=== PATIENT | female | born 1955 | race Caucasian/White ===

== ENCOUNTER → 2018-10-27 | Outpatient (CLI) | payer MEDICARE, OTHER ==
--- NOTE | 2018-10-27 15:01 | REP ---
RIGHT LOWER EXTREMITY DUPLEX DOPPLER ARTERIAL ULTRASOUND: Real-time ultrasound evaluation and duplex Doppler interrogation of the right lower extremity arterial system is performed. The patient has a history of a right bypass graft from mid superficial femoral artery to the tibioperoneal truck. At the proximal anastomosis, peak systolic velocity is 58 cm/s, mid aspect 29 cm/s, and distal anastomosis 32 cm/s with biphasic waveforms throughout. ALEX on the right is 0.92. Distal right superficial femoral artery is occluded. Biphasic waveforms are seen proximal to that with monophasic waveforms distal to that. There is reversal of flow in the popliteal artery. There is otherwise no significant stenosis of the right lower extremity arterial system with mild scattered plaquing and narrowing. Right Peak Systolic Velocity Common femoral artery 142 cm/s Profunda 34 cm/s Proximal SFA 101 cm/s Mid SFA 65 cm/s Distal SFA occluded Popliteal reversed Proximal MAKSIM 37 cm/s Tibial peroneal trunk 29 cm/s Proximal DEICER REPAIRER ELECTRIC 46 cm/s Distal DEICER REPAIRER ELECTRIC 47 cm/s Distal MAKSIM 20 cm/s IMPRESSION: Patent bypass graft from mid superficial femoral artery to tibioperoneal trunk. This bypasses an occluded distal superficial femoral artery. Otherwise, no significant arterial stenosis of the right lower extremity. Reversal of flow in the right popliteal artery. Electronically Signed by Chris Lockhart MD 10/27/2018 04:36 P
== END ==
LOC: M RAD 12:27
PROVIDERS: ATTEND Nurse Practitioner
DX: Z95.828 Presence of other vascular implants and grafts (principal); I74.3 Embolism and thrombosis of arteries of the lower extremities

== ENCOUNTER 2018-12-14 09:42 | Inpatient (IN) | payer MEDICARE, OTHER ==
[~2018-12-14] VITALS: Ht 170.2 cm; Wt 60.5 kg
[2018-12-14] MEDS ORDERED: LISI10TA4 PO (09:57)
[2018-12-14] MEDS ORDERED: ALBU8.5H INH (09:57)
[2018-12-14] MEDS ORDERED: METO1TAB32 PO (09:57)
[2018-12-14] MEDS ORDERED: BREO1INH3 INH (09:57)
[2018-12-14] MEDS ORDERED: ATOR80TA59 PO (09:57)
[2018-12-14] MEDS ORDERED: ASPI-255 PO (10:02)
[2018-12-14] MEDS ORDERED: AMOX500C PO (10:02)
[2018-12-14] MEDS ORDERED: PLAV1TAB2 PO (10:02)
[2018-12-14] MEDS ORDERED: PANT40TA3 PO (10:02)
[2018-12-14] MEDS ORDERED: DRON40TA PO (10:02)
[2018-12-14] MEDS ORDERED: CLAR500T PO (10:02)
[2018-12-14 11:10] LABS: BASO # 0.1 10^3/uL (0.0-0.2); BASO % 0.9 % (0.0-1.0); EOS # 0.1 10^3/uL (0.0-0.50); EOS % 0.7 % (0.0-3.0); HEMATOCRIT 39.7 % (36.0-47.0); HEMOGLOBIN 12.7 g/dl (12.0-15.5); LYMPH # 1.6 10^3/uL (1.5-4.5); LYMPH % 14.1 % (24.0-44.0); MEAN CORPUSCULAR HEMOGLOBIN 31.7 pg (27.0-33.0); MONO # 0.9 10^3/uL (0.0-0.8); MONO % 8.3 % (0.0-5.0); NEUTROPHILS # 8.5 10^3/uL (1.8-7.7); NEUTROPHILS % 75.6 % (36.0-66.0); PLATELET COUNT, AUTOMATED 359 10^3/uL (150-450); RED BLOOD COUNT 4.01 10^6/uL (4.00-5.40); WHITE BLOOD COUNT 11.3 10^3/uL (4.0-10.0)
[2018-12-14] MEDS ORDERED: HEPARIN SOD (PORCINE) 5000 UNITS/ML VIAL IV ONE ×2 (11:15→13:30)
[2018-12-14 11:24] LABS: PROTHROMBIN TIME 12.9 SECONDS (11.8-14.0)
[2018-12-14] MEDS ORDERED: DOCU100C16 PO (11:30)
[2018-12-14] MEDS ORDERED: DULC5TAB PO (11:30)
[2018-12-14] MEDS ORDERED: VITA200020 PO (11:30)
[2018-12-14 11:34] LABS: ALBUMIN 3.9 GM/DL (3.2-5.2); BILIRUBIN,DIRECT 0.1 MG/DL (0.0-0.2); BILIRUBIN,TOTAL 0.4 MG/DL (0.2-1.0); CALCIUM LEVEL 9.9 MG/DL (8.8-10.2); CREATININE FOR GFR 1.2 MG/DL (0.55-1.30); POTASSIUM SERUM 5.4 MEQ/L (3.5-5.1); TOTAL PROTEIN 7.7 GM/DL (6.4-8.2)
--- NOTE | 2018-12-14 11:46 | CR.PDOC ---
General Date of Consultation: Dec 14, [address] Cho HPI: 63 year old F with a past medical history significant for PAD who reported to the emergency department reporting right lower extremity pain. She states she noticed a white discoloration in the toes of her right foot this morning as well as right foot pain. She states she follows with Dr. Castillo in [place], she was scheduled to see him this morning. At baseline she has pain in the right calf with ambulation. If she stops to rest it typically resolves. This morning pain in her right lower extremity has been persistent. She noticed discoloration of her toes as well. Vascular surgery was called for consultation regarding right lower extremity i schemia. Denies any fevers, chills, weakness, fatigue, Headache, Chest Pain, Shortness of breath, cough, palpitations, abdominal pain, N/V/D or changes in bowel or bladder habits. PMHx: PAD/prior vascular procedures lower extremity as per Dr. Castillo. History of DVT. COPD GERD Recent GI bleed discharged from [facility] 12/[facility]/18 status post EGD. Restarted on aspirin 81 mg daily and Plavix. Coumadin was discontinued. Dyslipidemia Hypertension VHD PSHX: EGD Colonoscopy Hysterectomy Breast biopsy, benign Left ulnar nerve transposition Mitral valve repair Cardiac ablation SOCHX: Tobacco use: 5-7 cigarettes per day ETOH denies FAMHX: History of hypertension, CAD, PVD. ROS: As noted in HPI, otherwise 11pt ROS of systems reviewed and unremarkable. PE: GEN: 63 yo F, appears stated age. No acute distress. Alert and oriented x 3. HEENT: Normocephalic, atraumatic. Moist mucous membranes. LUNGS: Clear to auscultation bilaterally. ABD: Round, soft, non-tender, non-distended. EXT: No lower extremity edema appreciated. White discoloration is noted of the first through fourth toes of the right foot. Mild tenderness with palpation. Cool to touch. DP/PT pulses are nonpalpable and unable to obtain with Doppler. Popliteal is obtained with Doppler. Femoral pulses palpable. Poor capillary refill. SKIN: No rashes. NEURO: Alert and oriented x 3. No focal deficits appreciated. A&P: 1. History of PAD. Right lower extremity ischemia. The patient is reviewed and examined as per Dr. Cho. History of recent GI bleed, status post EGD. Hemoglobin is noted to be 12.7. Right lower extremity arterial ultrasound is pending at this time. Patient was apparently recently taken off Coumadin and is currently on aspirin 81 mg and Plavix. Await results of arterial ultrasound for further recommendations. Recommend Heparin gtt. Will add PPI IV BID and carafate AC/HS for GI prophylaxis. Possibly consider angiogram 12/15/18. 2. H/O DVT. Heparin gtt currently. Vital Signs/I&O Vital Signs Date Time Temp Pulse Resp B/P (MAP) Pulse Ox O2 Delivery O2 Flow Rate FiO2 12/14/18 11:05 12/14/18 09:44 97.6 65 16 100 Room Air Laboratory Data Labs 24H Laboratory Tests 2 12/14/18 10:29: Immature Granulocyte % (Auto) 0.4, White Blood Count 11.3H, Red Blood Count 4.01, Hemoglobin 12.7, Hematocrit 39.7, Mean Corpuscular Volume 99.0H, Mean Corpuscular Hemoglobin 31.7, Mean Corpuscular Hemoglobin Concent 32.0, Red Cell Distribution Width 14.3, Platelet Count 359, Neutrophils (%) (Auto) 75.6H, Lymphocytes (%) (Auto) 14.1L, Monocytes (%) (Auto) 8.3H, Eosinophils (%) (Auto) 0.7, Basophils (%) (Auto) 0.9, Neutrophils # (Auto) 8.5H, Lymphocytes # (Auto) 1.6, Monocytes # (Auto) 0.9H, Eosinophils # (Auto) 0.1, Basophils # (Auto) 0.1, Nucleated Red Blood Cells % (auto) 0.0, Prothrombin Time 12.9, Prothromb Time International Ratio 1.00, Anion Gap 4L, Glomerular Filtration Rate 48.0, Calcium Level 9.9, Aspartate Amino Transf (AST/SGOT) 13, Alanine Aminotransferase (ALT/SGPT) 21, Alkaline Phosphatase 86, Total Bilirubin 0.4, Direct Bilirubin 0.1, Total Protein 7.7, Albumin 3.9, Albumin/Globulin Ratio 1.03 CBC/BMP Laboratory Tests 12/14/18 10:29 Red Blood Count 4.01, Mean Corpuscular Volume 99.0 H, Mean Corpuscular Hemoglobin 31.7, Mean Corpuscular Hemoglobin Concent 32.0, Red Cell Distribution Width 14.3, Neutrophils (%) (Auto) 75.6 H, Lymphocytes (%) (Auto) 14.1 L, Monocytes (%) (Auto) 8.3 H, Eosinophils (%) (Auto) 0.7, Basophils (%) (Auto) 0.9, Neutrophils # (Auto) 8.5 H, Lymphocytes # (Auto) 1.6, Monocytes # (Auto) 0.9 H, Eosinophils # (Auto) 0.1, Basophils # (Auto) 0.1 Allergies Coded Allergies: No Known Allergies (Unverified , 12/14/18) Home Medications Scheduled Amoxicillin (Amoxicillin) 500 Mg Capsule, 1,000 MG PO BID, (Reported) FILLED 12/03 FOR 14 DAYS Aspirin (Aspirin EC) 325 Mg Tablet.dr, 325 MG PO DAILY, (Reported) Atorvastatin Calcium (Atorvastatin Calcium) 80 Mg Tablet, 80 MG PO QHS, (Reported) Cholecalciferol (Vitamin D3) (Vitamin D3) 2,000 Unit Capsule, 2,000 UNIT PO QHS, (Reported) Clarithromycin (Clarithromycin) 500 Mg Tablet, 500 MG PO BID, (Reported) FILLED 12/03 FOR 14 DAYS Clopidogrel Bisulfate (Plavix) 75 Mg Tablet, 75 MG PO DAILY, (Reported) Dronedarone (Multaq) 400 Mg Tablet, 400 MG PO BID, (Reported) Fluticasone/Vilanterol (Breo Ellipta 200-25 Mcg INH) 1 Each Blst.w.dev, 1 PUFF INH DAILY, (Reported) Lisinopril (Lisinopril) 10 Mg Tablet, 10 MG PO DAILY, (Reported) Metoprolol Succinate (Metoprolol Succinate) 25 Mg Tab.er.24h, 25 MG PO DAILY, (Reported) Pantoprazole Sodium (Pantoprazole Sodium) 40 Mg Tablet.dr, 40 MG PO BID, (Reported) Scheduled PRN Albuterol Sulfate (Albuterol Sulfate Hfa) 8.5 Gm Hfa.aer.ad, 2 PUFFS INH QID PRN for SHORTNESS OF BREATH, (Reported) Bisacodyl (Dulcolax) 5 Mg Tablet.dr, 5 MG PO DAILY PRN for CONSTIPATION, (Reported) Docusate Sodium (Docusate Sodium) 100 Mg Capsule, 100 MG PO DAILY PRN for CONSTIPATION, (Reported) Attending Note Attending Note VASCULAR SURGICAL ATTENDING NOTE: Dr. Lisbeth Cho M.D. The patient was seen on 12/14/18 at 12:11. ASSESSMENT: Patient is a 63-year-old female with acute ischemia of the the right lower extremity who has previously undergone a right femoral to popliteal artery bypass graft with cadaveric saphenous vein. The surgery was done in [place]. The patient subsequently had thrombosis of her bypass graft and underwent thrombolysis with angiography in [facility]. The patient had sudden worsening of her chronic ischemia in her right lower extremity venous morning and presented to the emergency room. Patient was seen during ultrasound of her right lower extremity which demonstrated occlusion of her bypass graft. Patient also has a history of a recent gastrointestinal hemorrhage. Patient initially had right toes and decreased motor and sensation in the emergency room but on evaluation at this time the toes are pink with 2-3 second capillary refill and the patient's motor and sensory function are intact in the right foot. PLAN: The patient will undergo systemic anticoagulation with heparin for her ischemic right lower extremity. The patient has a recent gastrointestinal hemorrhage and will be placed on Protonix 40 mg every 12 hours as well as Carafate every 6 hours. If the patient tolerates heparinization with no acute gastrointestinal bleeding then the patient will undergo angiography with possible initiation of thrombolysis of her thrombosed right femoral to popliteal artery bypass graft. If the patient is unable to undergo thrombolysis she will undergo angiography and require recurrent bypass grafting. Patient will be admitted and monitored on heparin and undergo angiography on 12/15/2018 with possible thrombolysis as long as she remains stable with regards to her previous gastrointestinal bleeding. Yasmine Sunshine was the attending vascular surgeon for this patient encounter. The patient was seen, examined, interviewed and evaluated independently by Dr. Nicole Cho M.D. Dr. Nicole Cho M.D. was fully available during the consultation evaluation. All aspects of the patient interview, examination, medical decision making process, and medical care plan development were reviewed and approved by Dr. Nicole Cho M.D. Dr. Nicole Cho M.D. is aware and concurs with the plan as stated in the body of this note and will attest to such by his/her cosignature. Celia Drummond Dec 14, 2018 11:46 Olegario Cho MD Dec 14, 2018 23:31
[2018-12-14] MEDS ORDERED: DOCUSATE SODIUM 100 MG CAP PO PRN (13:30)
[2018-12-14] MEDS ORDERED: BISACODYL 5 MG TAB PO PRN (13:30)
--- NOTE | 2018-12-14 14:19 | HPE ---
DATE OF ADMISSION: 12/14/2018 PRIMARY CARE PROVIDER: Dr. Martines CHIEF COMPLAINT: Ischemic right leg. HISTORY: Delphine Strauss is a 63-year-old patient of Dr. Martines who was admitted to the hospitalist service. She has a cool, tingling right lower extremity. She has a history of peripheral arterial disease, prior vascular procedures by vascular group in [place], Dr. Feldman. She has a history of chronic obstructive pulmonary disease (COPD), gastroesophageal reflux disease (GERD), hyperlipidemia, hypertension, valvular heart disease with mitral valve ring repair, gastrointestinal bleed, recently discharged on 12/03/2018 status post esophagogastroduodenoscopy (EGD). She was on aspirin and Plavix, which was restarted due to her vascular disease. She has a history of deep vein thrombosis (DVT). She used to be on warfarin for this, but this was discontinued after her recent bleed. SURGICAL HISTORY: 1. EGD and colonoscopy 11/2018. 2. Hysterectomy. 3. Breast biopsy. 4. Left ulnar nerve transposition. 5. Mitral valve ring repair. 6. Cardiac ablation for supraventricular tachycardia (SVT). SOCIAL HISTORY: Smokes five to seven cigarettes a day. Denies alcohol use. FAMILY HISTORY: Positive for coronary artery disease. REVIEW OF SYSTEMS: No epistaxis, rectal bleeding, hematemesis, chest pain, shortness of breath, palpitations. PHYSICAL EXAMINATION: VITAL SIGNS: As per flow sheet. GENERAL APPEARANCE: Alert, conversant, no distress. Well developed, well nourished. LUNGS: Clear. HEART: Regular rate and rhythm. 1/6 systolic ejection murmur. ABDOMEN: Soft, nontender. No masses. EXTREMITIES: Right lower extremity is cool with no palpable pulses. Tender to palpate from calf distally. LABORATORIES: White count 11.3, hemoglobin 12.7, platelets 359. Sodium 139, potassium 5.4, BUN 29, chloride 1.2, glucose 102, INR 1.0. IMPRESSION: 1. Ischemic right lower extremity. Arterial ultrasound was done, which reportedly shows occluded right popliteal artery. Dr. Cho has been consulted. He asked the hospitalist service to admit the patient. He plans intervention later today. Advises holding aspirin and Plavix and starting heparin drip. Aggressive gastrointestinal prophylaxis with IV Protonix and sucralfate in the face of recent gastrointestinal bleed. 2. Hyperlipidemia. Continue atorvastatin 80 mg daily. 3. Hypertensive heart disease. Continue Lisinopril and metoprolol. 4. Recent gastrointestinal bleed. Repeat CBC has been ordered. Aggressive gastrointestinal prophylaxis with IV Protonix and oral Carafate has been ordered.
[2018-12-14 14:38] LABS: PARTIAL THROMBOPLASTIN TIME 29.2 SECONDS (25.0-38.4)
--- NOTE | 2018-12-14 15:00 | REP ---
RIGHT LOWER EXTREMITY DUPLEX ARTERIAL ULTRASOUND: Real-time ultrasound evaluation and duplex Doppler interrogation of right lower extremity arterial system is performed. ALEX is 0.6. There is occlusion of a known right femoral to tibial peroneal trunk bypass graft. There is also occlusion of the distal right superficial femoral artery and distal anterior tibial artery. Biphasic waveforms are seen in the common femoral artery and proximal superficial femoral artery with monophasic waveforms in the popliteal artery and arteries of the calf. Scattered plaquing is seen. PEAK SYSTOLIC VELOCITY RIGHT Common femoral artery 111.3 cm/s Profunda 118.1 Proximal SFA 56.6 Superficial femoral artery mid 21.1 Superficial femoral artery distal Occluded Popliteal 99.2 Proximal anterior tibial artery 46.8 Tibial peroneal trunk 21.3 Proximal posterior tibial artery 19.7 Distal posterior tibial artery 14.8 Distal anterior tibial artery Occluded IMPRESSION: There is occlusion of the right femoral tibioperoneal trunk bypass graft, as well as occlusion of the distal right SFA and MAKSIM. Electronically Signed by Chris Lockhart MD 12/15/2018 09:45 A
[2018-12-14] MEDS: SUCRALFATE 1 GM TAB PO SCH ×3 (15:05→23:50)
[2018-12-14] MEDS: HEPARIN DRIP 25,000 UNITS in APPROPRIATE DILUENT 1 EA IV SCH (15:15)
[2018-12-14 16:35] VITALS: BP 122/57
[2018-12-14] MEDS ORDERED: ACETAMINOPHEN TAB 650MG DOSE (2X325MG) PO PRN (19:45)
[2018-12-14 20:00] VITALS: BP 115/58
--- NOTE | 2018-12-14 20:30 | ECGEPIP ---
[facility] - ED Test Date: 2018-12-14 Pat Name: ANA ALDRIDGE Department: Room: - Gender: Female Otc Clerk: joey : 1955 Requested By: BK NIÑO PA-C Order Number: [id number] Reading MD: Rylee Naqvi Measurements Intervals [place] Rate: 73 P: 60 WI: 168 QRS: 56 QRSD: 90 T: 46 QT: 386 QTc: 428 Interpretive Statements SINUS RHYTHM WITH OCCASIONAL VENTRICULAR PREMATURE COMPLEXES WITH FREQUENT SUPRAVENTRICULAR PREMATURE COMPLEXES ABNORMAL RHYTHM ECG delayed R progression NSTTW abnormalities NO PRIOR Electronically Signed on 12-14-2018 20:29:44 EDT by Rylee Naqvi
[2018-12-14] MEDS: PANTOPRAZOLE 40MG INJ (PROTONIX) (C9113) IV SCH (20:32)
[2018-12-14] MEDS: ATORVASTATIN 20 MG TAB PO SCH (20:32)
[2018-12-14] MEDS: DRONEDARONE 400 MG TAB (MULTAQ) PO SCH (20:32)
[2018-12-14] MEDS ORDERED: PANTOPRAZOLE 40MG TAB (PROTONIX) PO SCH (21:00)
[2018-12-14 23:59] VITALS: BP 100/59
[2018-12-15] VITALS (7 sets, daily range): BP systolic 110–136; BP diastolic 56–77
[2018-12-15 04:53] LABS: HEMATOCRIT 34.5 % (36.0-47.0); MEAN CORPUSCULAR HEMOGLOBIN 31.1 pg (27.0-33.0); MEAN CORPUSCULAR HGB CONC 31.9 g/dl (32.0-36.5); MEAN CORPUSCULAR VOLUME 97.5 fl (80.0-96.0); PLATELET COUNT, AUTOMATED 296 10^3/uL (150-450); RED BLOOD COUNT 3.54 10^6/uL (4.00-5.40); WHITE BLOOD COUNT 9.2 10^3/uL (4.0-10.0)
[2018-12-15] MEDS: SUCRALFATE 1 GM TAB PO SCH ×4 (05:14→23:25)
[2018-12-15 05:35] LABS: BLOOD UREA NITROGEN 19 MG/DL (7-18); CALCIUM LEVEL 8.5 MG/DL (8.8-10.2); CARBON DIOXIDE LEVEL 25 MEQ/L (21-32); CHLORIDE LEVEL 109 MEQ/L (98-107); CREATININE FOR GFR 0.98 MG/DL (0.55-1.30); GLOMERULAR FILTRATION RATE > 60.0 (>45); GLUCOSE, FASTING 86 MG/DL (70-100); POTASSIUM SERUM 3.9 MEQ/L (3.5-5.1); SODIUM LEVEL 143 MEQ/L (136-145)
[2018-12-15] MEDS: DRONEDARONE 400 MG TAB (MULTAQ) PO SCH ×2 (08:55→21:20)
[2018-12-15] MEDS: PANTOPRAZOLE 40MG INJ (PROTONIX) (C9113) IV SCH ×2 (08:56→21:19)
[2018-12-15] MEDS: LISINOPRIL 10 MG TAB PO SCH (09:00)
[2018-12-15] MEDS ORDERED: ASPIRIN ENTERIC 325 MG TAB PO SCH (09:00)
[2018-12-15] MEDS ORDERED: CLOPIDOGREL 75 MG TAB PO SCH (09:00)
[2018-12-15] MEDS: METOPROLOL SUCC *XL* 25MG TAB (TopROL *XL*) PO SCH (09:00)
--- NOTE | 2018-12-15 10:44 | IPNPDOC ---
Date Seen The patient was seen on 12/15/18. Progress Note Vascular surgery. Dr. Cho HPI: 63 year old F with a past medical history significant for PAD who reported to the emergency department reporting right lower extremity pain. She states she noticed a white discoloration in the toes of her right foot this morning as well as right foot pain. She states she follows with Dr. Castillo in [place], she was scheduled to see him this morning. At baseline she has pain in the right calf with ambulation. If she stops to rest it typically resolves. This morning pain in her right lower extremity has been persistent. She noticed discoloration of her toes as well. Vascular surgery was called for consultation regarding right lower extremity ischemia. The pt states she has pain in the Rt calf and foot with activity such as getting OOB or to BR. Foot has not been discolored since yest AM. PMHx: PAD/prior vascular procedures lower extremity as per Dr. Castillo. History of DVT. COPD GERD Recent GI bleed discharged from [facility] 12/03/18 status post EGD. Restarted on aspirin 81 mg daily and Plavix. Coumadin was discontinued. Dyslipidemia Hypertension VHD PSHX: EGD Colonoscopy Hysterectomy Breast biopsy, benign Left ulnar nerve transposition Mitral valve repair Cardiac ablation PE: GEN: 63 yo F, appears stated age. No acute distress. Alert and oriented x 3. HEENT: Normocephalic, atraumatic. Moist mucous membranes. LUNGS: Clear to auscultation bilaterally. ABD: Round, soft, non-tender, non-distended. EXT: No lower extremity edema appreciated. White discoloration is resolved right foot. warmer to touch this AM. DP/PT pulses are nonpalpable and faint monophasic Rt PT, unable to obtain DP with Doppler. Popliteal is obtained with Doppler. Femoral pulses palpable. capillary refill 3-4 secs SKIN: No rashes. NEURO: Alert and oriented x 3. No focal deficits appreciated. RLE art US There is occlusion of the right femoral tibioperoneal trunk bypass graft, as well as occlusion of the distal right SFA and MAKSIM. Electronically Signed by Chris Lockhart MD 12/15/2018 09:45 A A&P: 1. History of PAD. Right lower extremity ischemia. The patient is reviewed and examined as per Dr. Cho. History of recent GI bleed, status post EGD. Hemoglobin is noted to be 11.0 this Am. Right lower extremity arterial ultrasound is reviewed by Dr Cho Patient was apparently recently taken off Coumadin and placed on aspirin 81 mg and Plavix. Await results of arterial ultrasound for further recommendations. Recommend Heparin gtt. (ASA/Plavix on hold) PPI IV BID and carafate AC/HS for GI prophylaxis. Plan as per Dr Cho this AM is for diagnostic angiogram 12/15/18. Further recommendations pending findings. 2. H/O DVT. Heparin gtt currently. VS, I&O, 24H, Fishbone Vital Signs/I&O Vital Signs Date Time Temp Pulse Resp B/P (MAP) Pulse Ox O2 Delivery O2 Flow Rate FiO2 12/15/18 09:00 54 12/15/18 09:00 112/62 12/15/18 08:00 97.3 20 98 12/14/18 15:14 Room Air I&O- Last 24 Hours up to 6 AM 12/15/18 06:00 Intake Total 898 ml Output Total 800 ml Balance 98 ml Laboratory Data 24H LABS Laboratory Tests 2 12/14/18 21:04: Activated Partial Thromboplast Time 115.5H 12/15/18 04:27: Activated Partial Thromboplast Time 118.7H, Nucleated Red Blood Cells % (auto) 0.0, Anion Gap 9, Glomerular Filtration Rate > 60.0, Blood Urea Nitrogen 19H, Creatinine 0.98, Sodium Level 143, Potassium Level 3.9#, Chloride Level 109H, Carbon Dioxide Level 25, Calcium Level 8.5L CBC/BMP Laboratory Tests 12/15/18 04:27 Red Blood Count 3.54 L, Mean Corpuscular Volume 97.5 H, Mean Corpuscular Hemoglobin 31.1, Mean Corpuscular Hemoglobin Concent 31.9 L, Red Cell Distribution Width 14.1, Calcium Level 8.5 L Celia Drummond Dec 15, 2018 10:44
--- NOTE | 2018-12-15 16:37 | IPNPDOC ---
Text Note Date of Service The patient was seen on 12/15/18. NOTE Subjective Patient seen and examined at bedside. Current complaint of foot pain Objective GENERAL APPEARANCE: Alert, conversant, no distress. Well developed, well nourished. LUNGS: Clear. HEART: Regular rate and rhythm. 1/6 systolic ejection murmur. ABDOMEN: Soft, nontender. No masses. EXTREMITIES: Right lower extremity is cool with no palpable pulses. Tender to palpate from calf distally. Assessment/plan #Ischemic right lower extremity. -Arterial ultrasound was done, which reportedly shows occluded right popliteal artery. -Dr. Cho has been consulted. Patient undergoing angiogram today - on heparin drip. -Aggressive gastrointestinal prophylaxis with IV Protonix and sucralfate in the face of recent gastrointestinal bleed. # Hyperlipidemia. - Continue atorvastatin 80 mg daily. #Hypertensive heart disease. - Continue Lisinopril and metoprolol. # Recent gastrointestinal bleed. -Follow-up daily hemoglobin #Urinary urgency -This is new -Ordered UA, will follow up DVT prophylaxis on heparin drip Disposition pending clearance from vascular surgery Roberto TAMAYO, I+O VSRoberto I+O Laboratory Tests 12/15/18 04:27 Red Blood Count 3.54 L, Mean Corpuscular Volume 97.5 H, Mean Corpuscular Hemoglobin 31.1, Mean Corpuscular Hemoglobin Concent 31.9 L, Red Cell Distribution Width 14.1, Calcium Level 8.5 L Vital Signs Date Time Temp Pulse Resp B/P (MAP) Pulse Ox O2 Delivery O2 Flow Rate FiO2 12/15/18 16:00 97.9 52 18 126/75 (92) 98 12/14/18 15:14 Room Air I&O- Last 24 Hours up to 6 AM 12/15/18 05:59 Intake Total 884 ml Output Total 800 ml Balance 84 ml REGINALD MITCHELL MD Dec 15, 2018 16:37
[2018-12-15] MEDS ORDERED: BUPIVACAINE HCL 0.5% 10 ML VIAL As Ordered ONE (16:39)
[2018-12-15] MEDS ORDERED: LIDOCAINE 2% MDV 20 ML VIAL As Ordered ONE (16:39)
[2018-12-15] MEDS ORDERED: ISOVUE-300 61% 50ML VIAL (Q9967) As Ordered ONE ×2 (16:40→17:19)
[2018-12-15] MEDS ORDERED: diphenhydrAMINE INJ 50MG/ML VIAL (J1200) As Ordered ONE (16:48)
[2018-12-15] MEDS ORDERED: fentaNYL 100 MCG/2 ML INJECTION (J3010) As Ordered ONE ×2 (16:49→18:04)
[2018-12-15] MEDS ORDERED: HEPARIN 1,000 UNITS/ML 10ML VIAL (FOR RADIOLOGY& DIALYSIS ONLY) As Ordered ONE (16:49)
[2018-12-15] MEDS ORDERED: MIDAZOLAM INJ 2 MG/2 ML VIAL (J2250) As Ordered ONE ×2 (16:49→18:04)
[2018-12-15] MEDS: ATORVASTATIN 20 MG TAB PO SCH (21:19)
[2018-12-15] MEDS: HEPARIN DRIP 25,000 UNITS in APPROPRIATE DILUENT 1 EA IV SCH (23:36)
[2018-12-16] VITALS (9 sets, daily range): BP systolic 92–114; BP diastolic 50–70
[2018-12-16 02:55] LABS: HEMATOCRIT 32.7 % (36.0-47.0); HEMOGLOBIN 10.4 g/dl (12.0-15.5); MEAN CORPUSCULAR HEMOGLOBIN 31.2 pg (27.0-33.0); MEAN CORPUSCULAR HGB CONC 31.8 g/dl (32.0-36.5); MEAN CORPUSCULAR VOLUME 98.2 fl (80.0-96.0); PLATELET COUNT, AUTOMATED 253 10^3/uL (150-450); RED BLOOD COUNT 3.33 10^6/uL (4.00-5.40)
[2018-12-16 03:24] LABS: CALCIUM LEVEL 8.4 MG/DL (8.8-10.2); GLOMERULAR FILTRATION RATE 59.2 (>45); POTASSIUM SERUM 3.5 MEQ/L (3.5-5.1)
[2018-12-16] MEDS: SUCRALFATE 1 GM TAB PO SCH ×4 (05:25→23:33)
[2018-12-16] MEDS: METOPROLOL SUCC *XL* 25MG TAB (TopROL *XL*) PO SCH (09:36)
[2018-12-16] MEDS: LISINOPRIL 10 MG TAB PO SCH (09:36)
[2018-12-16] MEDS: PANTOPRAZOLE 40MG INJ (PROTONIX) (C9113) IV SCH ×2 (09:37→20:58)
[2018-12-16] MEDS: DRONEDARONE 400 MG TAB (MULTAQ) PO SCH ×2 (09:37→20:58)
--- NOTE | 2018-12-16 11:01 | IPNPDOC ---
Date Seen The patient was seen on 12/16/18. Progress Note Vascular surgery. Dr. Cho HPI: 63 year old F with a past medical history significant for PAD who reported to the emergency department reporting right lower extremity pain. She states she noticed a white discoloration in the toes of her right foot this morning as well as right foot pain. She states she follows with Dr. Castillo in [place], she was scheduled to see him this morning. At baseline she has pain in the right calf with ambulation. If she stops to rest it typically resolves. This morning pain in her right lower extremity has been persistent. She noticed discoloration of her toes as well. Vascular surgery was called for consultation regarding right lower extremity ischemia. The pt states she the pain in the Rt calf and foot with activity is improved. Has been OOB to BR and in room without discomfort. PMHx: PAD/prior vascular procedures lower extremity as per Dr. Castillo. History of DVT. COPD GERD Recent GI bleed discharged from [facility] 12/03/18 status post EGD. Restarted on aspirin 81 mg daily and Plavix. Coumadin was discontinued. Dyslipidemia Hypertension VHD PSHX: EGD Colonoscopy Hysterectomy Breast biopsy, benign Left ulnar nerve transposition Mitral valve repair Cardiac ablation PE: GEN: 63 yo F. Alert and oriented x 3. HEENT: Normocephalic, atraumatic. Moist mucous membranes. LUNGS: Clear to auscultation bilaterally. ABD: Round, soft, non-tender, non-distended. EXT: No lower extremity edema appreciated. No discoloration right foot. Rt foot warm to touch this AM. DP/PT pulses are nonpalpable and monophasic DP/PT with doppler. capillary refill <3 secs SKIN: No rashes. NEURO: Alert and oriented x 3. No focal deficits appreciated. RLE art US There is occlusion of the right femoral tibioperoneal trunk bypass graft, as well as occlusion of the distal right SFA and MAKSIM. Electronically Signed by Chris Lockhart MD 12/15/2018 09:45 A A&P: 1. History of PAD. Right lower extremity ischemia. The patient is reviewed and examined as per Dr. Cho. History of recent GI bleed, status post EGD. Hemoglobin is noted to be 10.4 this Am. S/P RLE angiogram with angioplasty/stent as per Dr Cho 12/15/18. No report av ailable at this time. on aspirin 81 mg and Plavix as outpt. Recommend D/C Heparin gtt. Restart ASA/Plavix. OK for DC from vascular surgery standpoint, FU with Dr Cho's office 1 week. VS, I&O, 24H, Fishbone Vital Signs/I&O Vital Signs Date Time Temp Pulse Resp B/P (MAP) Pulse Ox O2 Delivery O2 Flow Rate FiO2 12/16/18 09:36 64 113/61 12/16/18 04:00 96.6 18 95 12/15/18 18:50 3 12/14/18 15:14 Room Air I&O- Last 24 Hours up to 6 AM 12/16/18 06:00 Intake Total 781 ml Output Total 1100 ml Balance -319 ml Laboratory Data 24H LABS Laboratory Tests 2 12/15/18 11:12: Activated Partial Thromboplast Time 89.3H 12/15/18 19:28: Activated Partial Thromboplast Time > 240.0*H 12/16/18 02:50: Activated Partial Thromboplast Time 161.2*H, Nucleated Red Blood Cells % (auto) 0.0, Anion Gap 8, Glomerular Filtration Rate 59.2, Blood Urea Nitrogen 19H, Creatinine 1.00, Sodium Level 142, Potassium Level 3.5, Chloride Level 108H, Carbon Dioxide Level 26, Calcium Level 8.4L CBC/BMP Laboratory Tests 12/16/18 02:50 Red Blood Count 3.33 L, Mean Corpuscular Volume 98.2 H, Mean Corpuscular Hemoglobin 31.2, Mean Corpuscular Hemoglobin Concent 31.8 L, Red Cell Distri bution Width 14.0, Calcium Level 8.4 L Celia Drummond Dec 16, 2018 11:01
[2018-12-16 11:16] LABS: INR 1.03; PROTHROMBIN TIME 13.2 SECONDS (11.8-14.0)
[2018-12-16] MEDS: HEPARIN SOD (PORCINE) 5000 UNITS/ML VIAL IV PRN (11:51)
--- NOTE | 2018-12-16 18:26 | IPNPDOC ---
Text Note Date of Service The patient was seen on 12/16/18. NOTE SUBJECTIVE: Ms. Strauss was admitted with right lower extremity ischemia. She was found to have a right popliteal occlusion. She is status post intervention with angioplasty. She denies any pain to her legs. OBJECTIVE: Please see vital signs below General: Awake, alert and conversant HENT: Neck is supple with no adenopathy or thyromegaly Cardiovascular: Regular rate and rhythm with a normal S1 and S2. Respiratory: Clear to auscultation, good air movement, no wheezing Abdomen: Soft, nontender, nondistended. Extremities: Pedal pulse is readily palpable to the left foot, I am unable to palpate pedal pulse to the right foot. Pulses dopplerable by nursing staff. Otherwise, right foot is warm to touch. Neuro: No focal neuromotor or sensory deficit ASSESSMENT/PLAN: Ms. Strauss has undergone intervention with angioplasty for right popliteal occlusion. Her claudication is resolved. Patient had been on a heparin drip. She can be discharged to home likely on some form of oral anticoagulant when she is cleared by vascular surgery service. VS,Fishbone, I+O VS, Fishbone, I+O Laboratory Tests 12/16/18 02:50 Red Blood Count 3.33 L, Mean Corpuscular Volume 98.2 H, Mean Corpuscular Hemoglobin 31.2, Mean Corpuscular Hemoglobin Concent 31.8 L, Red Cell Distribution Width 14.0, Calcium Level 8.4 L Vital Signs Date Time Temp Pulse Resp B/P (MAP) Pulse Ox O2 Delivery O2 Flow Rate FiO2 12/16/18 16:00 99.4 57 16 98/64 (75) 93 12/15/18 18:50 3 12/14/18 15:14 Room Air I&O- Last 24 Hours up to 6 AM 12/16/18 06:00 Intake Total 781 ml Output Total 1100 ml Balance -319 ml CHRISTINA PAN MD Dec 16, 2018 18:26
[2018-12-16 18:39] LABS: APPEARANCE, URINE CLEAR (CLEAR); BACTERIA, URINE AUTO NEGATIVE (NEGATIVE); BILIRUBIN, URINE AUTO NEGATIVE (NEGATIVE); BLOOD, URINE BLOOD 1+ (NEGATIVE); COLOR, URINE YELLOW (YELLOW); GLUCOSE, URINE (UA) AUTO NEGATIVE (NEGATIVE); KETONE, URINE AUTO NEGATIVE (NEGATIVE); LEUKOCYTE ESTERASE, URINE AUTO TRACE (NEGATIVE); NITRITE, URINE AUTO NEGATIVE (NEGATIVE); PROTEIN, URINE AUTO NEGATIVE (NEGATIVE); RBC, URINE AUTO 0 /HPF (0-3); SPECIFIC GRAVITY URINE AUTO 1.004 (1.002-1.035); SQUAMOUS EPITHELIAL CELL UR AU 0 /HPF (0-6); UROBILINOGEN, URINE AUTO 0.2 mg/dL (0.0-2.0); WBC, URINE AUTO 1 /HPF (0-3)
[2018-12-16] MEDS: ATORVASTATIN 20 MG TAB PO SCH (20:58)
[2018-12-17] MEDS: HEPARIN SOD (PORCINE) 5000 UNITS/ML VIAL IV PRN (01:22)
[2018-12-17 04:00] VITALS: BP 108/64
[2018-12-17] MEDS: SUCRALFATE 1 GM TAB PO SCH ×2 (06:05→12:13)
[2018-12-17 07:41] LABS: HEMATOCRIT 29.1 % (36.0-47.0); HEMOGLOBIN 9.4 g/dl (12.0-15.5); MEAN CORPUSCULAR HEMOGLOBIN 30.6 pg (27.0-33.0); MEAN CORPUSCULAR HGB CONC 32.3 g/dl (32.0-36.5); MEAN CORPUSCULAR VOLUME 94.8 fl (80.0-96.0); PLATELET COUNT, AUTOMATED 231 10^3/uL (150-450); RED BLOOD COUNT 3.07 10^6/uL (4.00-5.40); WHITE BLOOD COUNT 11.3 10^3/uL (4.0-10.0)
[2018-12-17 08:00] VITALS: BP 110/66
[2018-12-17 08:03] LABS: CALCIUM LEVEL 8.7 MG/DL (8.8-10.2); CREATININE FOR GFR 1.12 MG/DL (0.55-1.30); POTASSIUM SERUM 3.7 MEQ/L (3.5-5.1)
[2018-12-17 08:23] VITALS: BP 92/50
[2018-12-17] MEDS: DRONEDARONE 400 MG TAB (MULTAQ) PO SCH (08:25)
[2018-12-17] MEDS: PANTOPRAZOLE 40MG INJ (PROTONIX) (C9113) IV SCH (08:25)
[2018-12-17 09:00] VITALS: BP 100/56
[2018-12-17] MEDS: LISINOPRIL 10 MG TAB PO SCH (09:00)
[2018-12-17] MEDS: METOPROLOL SUCC *XL* 25MG TAB (TopROL *XL*) PO SCH (09:00)
--- NOTE | 2018-12-17 10:09 | IPNPDOC ---
Date Seen The patient was seen on 12/17/18. Progress Note Vascular surgery. Dr. Cho HPI: 63 year old F with a past medical history significant for PAD who reported to the emergency department reporting right lower extremity pain. She states she noticed a white discoloration in the toes of her right foot this morning as well as right foot pain. She states she follows with Dr. Castillo in [place], she was scheduled to see him this morning. At baseline she has pain in the right calf with ambulation. If she stops to rest it typically resolves. This morning pain in her right lower extremity has been persistent. She noticed discoloration of her toes as well. Vascular surgery was called for consultation regarding right lower extremity ischemia. The pt states she the pain in the Rt calf and foot with activity is improved. States she has been OOB to BR and in room without discomfort. Pt reports no concerns this AM. PMHx: PAD/prior vascular procedures lower extremity as per Dr. Castillo. History of DVT. COPD GERD Recent GI bleed discharged from [facility] 12/03/18 status post EGD. Restarted on aspirin 81 mg daily and Plavix. Coumadin was discontinued. Dyslipidemia Hypertension VHD PSHX: EGD Colonoscopy Hysterectomy Breast biopsy, benign Left ulnar nerve transposition Mitral valve repair Cardiac ablation PE: GEN: 63 yo F. Alert and oriented x 3. HEENT: Normocephalic, atraumatic. Moist mucous membranes. LUNGS: Clear to auscultation bilaterally. ABD: Round, soft, non-tender, non-distended. EXT: No lower extremity edema appreciated. No discoloration right foot. Rt foot warm to touch this AM. DP/PT pulses are nonpalpable and monophasic DP/PT with doppler. capillary refill <3 secs SKIN: No rashes. NEURO: Alert and oriented x 3. No focal deficits appreciated. RLE art US There is occlusion of the right femoral tibioperoneal trunk bypass graft, as well as occlusion of the distal right SFA and MAKSIM. Electronically Signed by Chris Lockhart MD 12/15/2018 09:45 A A&P: 1. History of PAD. Right lower extremity ischemia. The patient is reviewed and examined as per Dr. Cho. History of recent GI bleed, status post EGD. Hemoglobin is noted to be 9.4 this Am. FOB neg. S/P RLE angiogram with angioplasty/stent as per Dr Cho 12/15/18. No report available at this time. on aspirin 81 mg and Plavix as outpt. Recommend D/C Heparin gtt. Restart ASA/Plavix. OK for DC from vascular surgery standpoint, FU with Dr Cho's office 1 week. Relayed to Hospitalist, Dr Collins. VS, I&O, 24H, Fishbone Vital Signs/I&O Vital Signs Date Time Temp Pulse Resp B/P (MAP) Pulse Ox O2 Delivery O2 Flow Rate FiO2 12/17/18 08:23 92/50 (64) 12/17/18 08:00 97.7 58 18 96 12/15/18 18:50 3 12/14/18 15:14 Room Air I&O- Last 24 Hours up to 6 AM 12/17/18 06:00 Intake Total 1122 ml Output Total 1000 ml Balance 122 ml Laboratory Data 24H LABS Laboratory Tests 2 12/16/18 10:55: Prothrombin Time 13.2, Prothromb Time International Ratio 1.03, Activated Partial Thromboplast Time 50.0H 12/16/18 17:41: Activated Partial Thromboplast Time 71.6H 12/16/18 18:20: Urine Appearance CLEAR, Urine Color YELLOW, Urine pH 5.0, Urine Specific [place] 1.004, Urine Protein NEGATIVE, Urine Glucose (UA) NEGATIVE, Urine Ketones NEGATIVE, Urine Urobilinogen 0.2, Urine Bilirubin NEGATIVE, Urine Leukocyte Alicia rase TRACEH, Urine Blood 1+H, Urine Nitrite NEGATIVE, Urine WBC (Auto) 1, Urine RBC (Auto) 0, Urine Hyaline Casts (Auto) 0, Urine Bacteria (Auto) NEGATIVE, Urine Squamous Epithelial Cells 0, Urine Sperm (Auto) 12/16/18 23:52: Activated Partial Thromboplast Time 59.2H 12/17/18 07:06: Nucleated Red Blood Cells % (auto) 0.0, Activated Partial Thromboplast Time 84.4H, Anion Gap 4L, Glomerular Filtration Rate 52.0, Blood Urea Nitrogen 13, Creatinine 1.12, Sodium Level 139, Potassium Level 3.7, Chloride Level 108H, Carbon Dioxide Level 27, Calcium Level 8.7L CBC/BMP Laboratory Tests 12/17/18 07:06 Red Blood Count 3.07 L, Mean Corpuscular Volume 94.8, Mean Corpuscular Hemoglobin 30.6, Mean Corpuscular Hemoglobin Concent 32.3, Red Cell Distribution Width 13.7, Calcium Level 8.7 L Microbiology Microbiology 12/16/18 Stool Occult Blood (KRISTAL) - Final, Complete Celia Drummond Dec 17, 2018 10:09
[2018-12-17] MEDS ORDERED: METO1TAB32 PO (11:07)
[2018-12-17] MEDS ORDERED: SUCR1TA PO (11:07)
[2018-12-17 11:17] VITALS: BP 100/56
--- NOTE | 2018-12-17 17:58 | DS.PDOC ---
Discharge Summary General Date of Admission Dec 15, 2018 at 12:45 Date of Discharge December 17, 2018. Specialist/Consultants Involve: Olegario Cho MD Specialist/Consultants Involve Celia THURMAN Discharge Summary PROCEDURES PERFORMED DURING STAY: RLE arteriogram with angioplasty. ADMITTING DIAGNOSES: 1. RLE ischemia. DISCHARGE DIAGNOSES: 1. R. popliteal artery occlusion,Right lower extremity ischemia resolved, right popliteal occlusion resolved, peripheral arterial disease, COPD with no acute exacerbation during this hospital stay, gastroesophageal reflux disease, dyslipidemia, essential hypertension, vascular heart disease with history of mitral valve repair, recent GI bleed, history of DVT.. COMPLICATIONS/CHIEF COMPLAINT: Ischemic Leg. HISTORY OF PRESENT ILLNESS/HOSPITAL COURSE: This is a 63-year-old female with a known history of peripheral arterial disease. She had a history of right lower extremity claudication. She presented to the emergency room complaining of white discoloration to her right foot accompanied by pain. Concern was raised for acute right lower extremity ischemia. She was found to have a fully occluded right popliteal artery. She underwent arteriogram with subsequent intervention and angioplasty with stent placement. Anticoagulation is complicated in this patient. She has a history of DVT and mitral valve repair. She had a recent GI bleed associated with being on Coumadin and so that has been stopped. She was found to have a significant ulcer. She is on proton pump inhibitor, Carafate and antibiotic therapy for H. pylori. She is to continue on antiplatelet therapy in the form of aspirin and Plavix.. DISCHARGE MEDICATIONS: Please see below. ALLERGIES: Please see below. PHYSICAL EXAMINATION ON DISCHARGE: VITAL SIGNS: Please see below. General: Awake, alert and conversant HENT: Neck is supple with no adenopathy or thyromegaly Cardiovascular: Regular rate and rhythm with a normal S1 and S2. Respiratory: Clear to auscultation, good air movement, no wheezing Abdomen: Soft, nontender, nondistended. Extremities: Pedal pulse is readily palpable to the left foot, I am unable to palpate pedal pulse to the right foot. Pulses dopplerable by nursing staff. Otherwise, right foot is warm to touch. Neuro: No focal neuromotor or sensory deficit LABORATORY DATA: Please see below. IMAGING: additional finding to arterial ultrasound-- IMPRESSION: There is occlusion of the right femoral tibioperoneal trunk bypass graft, as well as occlusion of the distal right SFA and MAKSIM. Electronically Signed by Chris Lockhart MD 12/15/2018 09:45 A PROGNOSIS: ACTIVITY: As tolerated. DIET: Heart healthy DISCHARGE PLAN: The patient is stable for discharge to home. She is to continue on her antiplatelet therapy. There are no restrictions on her ambulation. She is to follow-up with Dr. Cho in 1 week. DISPOSITION: 01 Home, Self-Care. DISCHARGE INSTRUCTIONS: 1. . ITEMS TO FOLLOWUP ON ON OUTPATIENT: 1. . DISCHARGE CONDITION: Stable. TIME SPENT ON DISCHARGE: Greater than 40 minutes. Vital Signs/I&Os Vital Signs Date Time Temp Pulse Resp B/P (MAP) Pulse Ox O2 Delivery O2 Flow Rate FiO2 12/17/18 11:17 100/56 (71) 12/17/18 09:00 58 12/17/18 08:00 97.7 18 96 12/15/18 18:50 3 12/14/18 15:14 Room Air I&O- Last 24 Hours up to 6 AM 12/17/18 06:00 Intake Total 1122 ml Output Total 1000 ml Balance 122 ml Laboratory Data Labs 24H Laboratory Tests 2 12/16/18 18:20: Urine Appearance CLEAR, Urine Color YELLOW, Urine pH 5.0, Urine Specific [address] 1.004, Urine Protein NEGATIVE, Urine Glucose (UA) NEGATIVE, Urine Ketones NEGATIVE, Urine Urobilinogen 0.2, Urine Bilirubin NEGATIVE, Urine Leukocyte Esterase TRACEH, Urine Blood 1+H, Urine Nitrite NEGATIVE, Urine WBC (Auto) 1, Urine RBC (Auto) 0, Urine Hyaline Casts (Auto) 0, Urine Bacteria (Auto) NE GATIVE, Urine Squamous Epithelial Cells 0, Urine Sperm (Auto) 12/16/18 23:52: Activated Partial Thromboplast Time 59.2H 12/17/18 07:06: Activated Partial Thromboplast Time 84.4H, Nucleated Red Blood Cells % (auto) 0.0, Anion Gap 4L, Glomerular Filtration Rate 52.0, Blood Urea Nitrogen 13, Creatinine 1.12, Sodium Level 139, Potassium Level 3.7, Chloride Level 108H, Carbon Dioxide Level 27, Calcium Level 8.7L CBC/BMP Laboratory Tests 12/17/18 07:06 Red Blood Count 3.07 L, Mean Corpuscular Volume 94.8, Mean Corpuscular Hemoglobin 30.6, Mean Corpuscular Hemoglobin Concent 32.3, Red Cell Distribution Width 13.7, Calcium Level 8.7 L Microbiology Microbiology 12/16/18 Stool Occult Blood (KRISTAL) - Final, Complete Discharge Medications Scheduled Amoxicillin (Amoxicillin) 500 Mg Capsule, 1,000 MG PO BID, (Reported) FILLED 12/03 FOR 14 DAYS Aspirin (Aspirin EC) 325 Mg Tablet.dr, 325 MG PO DAILY, (Reported) Atorvastatin Calcium (Atorvastatin Calcium) 80 Mg Tablet, 80 MG PO QHS, (Reported) Cholecalciferol (Vitamin D3) (Vitamin D3) 2,000 Unit Capsule, 2,000 UNIT PO QHS, (Reported) Clarithromycin (Clarithromycin) 500 Mg Tablet, 500 MG PO BID, (Reported) FILLED 12/03 FOR 14 DAYS Clopidogrel Bisulfate (Plavix) 75 Mg Tablet, 75 MG PO DAILY, (Reported) Dronedarone (Multaq) 400 Mg Tablet, 400 MG PO BID, (Reported) Fluticasone/Vilanterol (Breo Ellipta 200-25 Mcg INH) 1 Each Blst.w.dev, 1 PUFF INH DAILY, (Reported) Lisinopril (Lisinopril) 10 Mg Tablet, 10 MG PO DAILY, (Reported) Metoprolol Succinate (Metoprolol Succinate) 25 Mg Tab.er.24h, 12.5 MG PO DAILY Pantoprazole Sodium (Pantoprazole Sodium) 40 Mg Tablet.dr, 40 MG PO BID, (Reported) Sucralfate (Sucralfate) 1 Gm Tablet, 1 GM PO Q6H Scheduled PRN Albuterol Sulfate (Albuterol Sulfate Hfa) 8.5 Gm Hfa.aer.ad, 2 PUFFS INH QID PRN for SHORTNESS OF BREATH, (Reported) Bisacodyl (Dulcolax) 5 Mg Tablet.dr, 5 MG PO DAILY PRN for CONSTIPATION, (Reported) Docusate Sodium (Docusate Sodium) 100 Mg Capsule, 100 MG PO DAILY PRN for CONSTIPATION, (Reported) Allergies Coded Allergies: No Known Allergies (Unverified , 12/14/18) CHRISTINA PAN MD Dec 17, 2018 17:58
--- NOTE | 2018-12-31 17:19 | REPIR ---
DATE OF PROCEDURE: 12/15/2018 ATTENDING SURGEON: Dr. Lisbeth Cho ASSISTANTS: Lashon Rodriguez and Flora Osorio PREOPERATIVE DIAGNOSIS: Right lower extremity ischemia. POSTPROCEDURE DIAGNOSIS: Right lower extremity ischemia. PROCEDURE: Aortogram, iliofemoral angiogram, selective right common femoral artery catheter placement, right lower extremity angiogram, right popliteal artery angioplasty and stent with a 6 x 120 Rosana drug-eluting stent postdilated with a 5 x 100 balloon, right superficial femoral artery angioplasty and stent with a 6 x 120 Rosana drug-eluting stent postdilated with a 5 x 100 balloon, Mynx closure of the left common femoral arteriotomy. INDICATION: The patient is a 63-year-old female with pain and swelling in her right lower extremity with ultrasound showing complete occlusion of the SFA. The patient will undergo an angiogram with possible angioplasty, stent and/or atherectomy. Risks, benefits and alternative options were discussed with the patient. ANESTHESIA: Local with sedation with 3 mg Versed, 150 mcg of fentanyl and 20 mL of 2% lidocaine mixed 0.5% Marcaine. FLUORO TIME: 0.1 minutes. CONTRAST: 22 mL of Isovue-300 SEDATION TIME: Was from 1659 hours to 1847 hours. HEPARIN: 5000 units. COMPLICATIONS: None. DRAINS: None. SPECIMENS: None. PROCEDURE: The patient was taken to the angiography suite, placed on the angiography room table and then prepped and draped in a standard surgical fashion. The left common femoral artery was cannulated with a micropuncture needle. A catheter was placed in the aorta and aortogram was performed. Catheter was pulled down to the level of the bifurcation iliac arteries and an iliofemoral angiogram was performed. Catheter was directed over the bifurcation, placed in the right common femoral artery and right lower extremity angiogram was performed. This showed severe disease and occlusion of the superficial, femoral and popliteal arteries at their junction. This was crossed with reentry into the below-knee popliteal artery with angiography confirming intraluminal positioning. The popliteal artery and the superficial femoral artery were then angioplastied and stented with two 6 x 120 Rosana drug-eluting stents, postdilated with a 5 x 100 balloon. A completion angiogram showed resolution of the stenosis and occlusion with good flow through the superficial femoral artery into the popliteal artery and posterior tibial artery distally. Catheters and wires were removed. A Mynx closure device was used close the arteriotomy in the left common femoral artery with an additional 10 minutes of adjunctive pressure applied for hemostasis. Dressings were then applied. The patient tolerated the procedure well. All instrument, sponge and needle counts were correct at the end the case. There were no complications. Dr. Cho was present for and directed the entire case. The patient was transferred to the holding and subsequently discharged in stable condition.
== END 2018-12-17 13:07 | disposition home or self-care (01) | DRG 254 ==
LOC: M ED 09:42 → M ED INP 13:16 → M PCU 16:36 → OBSVTOIN 12-15 12:45
PROVIDERS: ADMIT Family Medicine; ATTEND Internal Medicine
PROC: [UNRECOGNIZED PROCEDURE] (2018-12-15)
PROC: 047M341 Dilation of Right Popliteal Artery with Drug-eluting Intraluminal Device, using Drug-Coated Balloon, Percutaneous Approach (ICD-10-PCS; principal; 2018-12-15 16:30)
DX: T82.858A Stenosis of other vascular prosthetic devices, implants and grafts, initial encounter (principal); I70.50 Unspecified atherosclerosis of nonautologous biological bypass graft(s) of the extremities; K21.9 Gastro-esophageal reflux disease without esophagitis; E78.5 Hyperlipidemia, unspecified; I11.9 Hypertensive heart disease without heart failure; F17.210 Nicotine dependence, cigarettes, uncomplicated; J44.9 Chronic obstructive pulmonary disease, unspecified; Z87.19 Personal history of other diseases of the digestive system; Z79.899 Other long term (current) drug therapy; Z86.718 Personal history of other venous thrombosis and embolism; Y83.1 Surgical operation with implant of artificial internal device as the cause of abnormal reaction of the patient, or of later complication, without mention of misadventure at the time of the procedure

== ENCOUNTER → 2019-01-10 | Outpatient (CLI) | payer MEDICARE, OTHER ==
[~2019-01-10] MED LIST: ALBU8.5H INH; AMOX500C PO; ASPI-255 PO; ATOR80TA59 PO; BREO1INH3 INH; CLAR500T PO; DOCU100C16 PO; DRON40TA PO; DULC5TAB PO; FERR325T81 PO; LISI10TA4 PO; METO1TAB32 PO; PANT40TA3 PO; PLAV1TAB2 PO; SUCR1TA PO; VITA200020 PO; VITA500C24 PO
--- NOTE | 2019-01-10 15:46 | REP ---
BILATERAL LOWER EXTREMITY DUPLEX DOPPLER ARTERIAL ULTRASOUND: Real-time ultrasound evaluation and duplex Doppler interrogation of bilateral lower extremity arterial systems is performed. ALEX right is 1.0 and left 1.0. Right femoral to tibioperoneal trunk bypass graft is again visualized. It is again noted to be occluded as on prior study of 12/14/2018. Reportedly a stent was placed 12/15/2018 extending from right superficial femoral artery mid aspect to the popliteal artery. There is mild to moderate plaquing seen in the bilateral common femoral arteries. There is patent flow throughout the superficial femoral arteries bilaterally. Biphasic waveforms are seen in the common femoral and superficial femoral arteries bilaterally with monophasic waveforms in the profunda and calf arteries. PEAK SYSTOLIC VELOCITY RIGHT LEFT Common femoral artery 200.0 cm/s 140.0 cm/s Profunda 96.2 91.1 Proximal SFA 116.0 105.0 Superficial femoral artery mid 55.4 125.0 Superficial femoral artery distal 48.8 120.0 Popliteal 40.4 51.0 Proximal anterior tibial artery 32.9 41.2 Tibial peroneal trunk 34.2 41.2 Proximal posterior tibial artery 35.6 30.6 Distal posterior tibial artery 73.8 33.3 Distal anterior tibial artery 37.8 28.2 Electronically Signed by Chris Lockhart MD 01/10/2019 04:26 P
== END ==
LOC: M RAD 12:55
PROVIDERS: ATTEND Physician Assistant
DX: I70.203 Unspecified atherosclerosis of native arteries of extremities, bilateral legs (principal); F17.210 Nicotine dependence, cigarettes, uncomplicated

== ENCOUNTER 2019-04-13 22:03 | Emergency (ER) | payer MEDICARE, OTHER ==
[~2019-04-13] VITALS: Ht 170.2 cm; Wt 61.4 kg
[~2019-04-13 22:03] MED LIST changes: -FERR325T81 PO; -VITA500C24 PO
[2019-04-13] MEDS ORDERED: FERR325T81 PO (22:12)
[2019-04-13] MEDS ORDERED: VITA500C24 PO (22:12)
[2019-04-13] MEDS ORDERED: NS 1,000 ML IV ONE (22:45)
[2019-04-13 22:58] LABS: HEMATOCRIT 42.3 % (36.0-47.0); HEMOGLOBIN 12.7 g/dl (12.0-15.5); MEAN CORPUSCULAR VOLUME 89.8 fl (80.0-96.0); PLATELET COUNT, AUTOMATED 394 10^3/uL (150-450); RED BLOOD COUNT 4.71 10^6/uL (4.00-5.40); WHITE BLOOD COUNT 11.6 10^3/uL (4.0-10.0)
[2019-04-13 23:09] LABS: INR 1.07; PARTIAL THROMBOPLASTIN TIME 27.3 SECONDS (25.0-38.4); PROTHROMBIN TIME 13.6 SECONDS (11.8-14.0)
[2019-04-13] MEDS ORDERED: ISOVUE-370 76% 100ML VIAL (Q9967) As Ordered ONE (23:42)
--- NOTE | 2019-04-14 00:52 | REPVR ---
PROCEDURE INFORMATION: Exam: CTA Angiogram of the Abdominal Aorta and Bilateral Lower Extremities (Run-off) With IV Contrast Exam date and time: 04/13/2019 10:42 PM Age: 64 years old Clinical indication: Other: clot; Additional Info: right leg pain, pale, pulseless TECHNIQUE: Imaging protocol: CT angiogram of the abdominal aorta, pelvis and bilateral lower extremities with IV iodinated contrast. CT scan from the lung bases through the hindfoot. 3D rendering: MIP and/or 3D reconstructed images were created by the technologist. Radiation optimization: All CT scans at this facility use at least one of these dose optimization techniques: automated exposure control; mA and/or kV adjustment per patient size (includes targeted exams where dose is matched to clinical indication); or iterative reconstruction. Contrast material: ISO; Contrast volume: 100 ml; Contrast route: AC; COMPARISON: No relevant prior studies available. FINDINGS: Limitations: Examination is limited by motion artifact. Resolution of the sagittal and coronal reformatted images are suboptimal. Lateral aspect of the left thigh is partially cut off the film. Atherosclerotic [place]: Diffuse severe atherosclerotic disease. Aorta: No aortic aneurysm. No aortic dissection. Celiac trunk and mesenteric arteries: Moderate focal stenosis of the origin of the celiac trunk. Severe focal stenosis of the proximal celiac trunk. Mild focal stenosis of the origin of the superior mesenteric artery. Inferior mesenteric artery is patent. Renal arteries: No occlusion or significant stenosis. Right iliac arteries: No occlusion or significant stenosis. Right femoral/popliteal arteries: There is small dissection within the proximal right superficial femoral artery just proximal to the endovascular stent. Status post endovascular stent in the right superficial femoral artery which is occluded. There is reconstitution of the distal right popliteal artery. Right infrapopliteal arteries: Evaluation of the infrapopliteal arteries are limited by motion. Proximal right anterior tibial artery is occluded. There is small flow in the mid segment of the anterior tibial artery. Distal right posterior tibial artery is not seen. Proximal peroneal artery is patent. Mid and distal segments of the right peroneal artery are not visualized. Proximal posterior tibial artery is patent. There are multiple segments of non opacification of the proximal right posterior tibial artery. Right dorsalis pedis artery is not visualized. Left iliac arteries: No occlusion or significant stenosis. Left femoral/popliteal arteries: No occlusion or significant stenosis. Left infrapopliteal arteries: Evaluation of the infrapopliteal arteries are limited by motion. Proximal left anterior tibial is patent. Mid and distal left anterior tibial and posterior tibial artery is not seen. Left peroneal artery is patent. Left dorsalis pedis artery is not visualized. Proximal left posterior tibial artery is patent. There is small flow within the mid and distal left posterior tibial artery. Lungs: Bronchial mucous plugging in the right lower lobe. Mild consolidations in the right lower lobe. Liver: No mass. Gallbladder and bile ducts: Unremarkable. No calcified stones. No ductal dilation. Pancreas: Unremarkable. No mass. No ductal dilation. Spleen: Normal. No splenomegaly. Multiple calcified granulomas. Adrenals: Normal. No mass. Kidneys and ureters: Normal. No mass. Stomach and bowel: Unremarkable. No obstruction. No mucosal thickening. Moderate stool in the colon. Negative for colonic diverticulitis. Appendix: The appendix is not seen. However, there is no evidence of appendicitis. Bladder: Unremarkable. No mass. Reproductive: Status post hysterectomy. Intraperitoneal space: Unremarkable. No free air. No significant fluid collection. Lymph nodes: No lymphadenopathy. Bones/joints: Moderate degenerative spine. No acute fracture. Multiple ossifications posteromedial to the left fibular head. Evaluation of the skeleton is somewhat limited on this study. Soft tissues: Surgical clips near the right adductor canal. IMPRESSION: 1. Limited by motion. 2. There is small dissection within the proximal right superficial femoral artery just proximal to the endovascular stent. 3. Status post right superficial femoral artery endovascular stent which is occluded. There is reconstitution of the distal right popliteal artery. 4. Multiple segments of the infrapopliteal arteries are not visualized as described and may be occluded bilaterally. Evaluation is limited by motion. 5. Dorsalis pedis arteries are not visualized bilaterally. 6. Severe focal stenosis of the proximal celiac trunk. 7. Bronchial mucous plugging in the right lower lobe and mild consolidations. Consistent with pneumonia. 8. Additional findings as described. COMMENT: Verbally discussed with Dr. CHRISTY at 04/14/2019 12:40 AM EST. Electronically signed by: Pito Parker On 04/14/2019 00:51:56 AM
[2019-04-14] MEDS ORDERED: HEPARIN DRIP 25,000 UNITS in IV 1 EA IV SCH (01:30)
[2019-04-14] MEDS ORDERED: HEPARIN SOD (PORCINE) 5000 UNITS/ML VIAL IV ONE (01:30)
[2019-04-14] MEDS ORDERED: AZITHROMYCIN 250 MG TAB PO ONE (01:30)
[2019-04-14] MEDS ORDERED: cefTRIAXone SOD 1 GM VIAL (J0696) IM ONE (01:30)
[2019-04-14] MEDS ORDERED: LIDOCAINE 1% SDV 5 ML VIAL DILUENT ONE (01:30)
[2019-04-14 02:10] VITALS: BP 125/61
== END 2019-04-14 02:24 | disposition short-term general hospital (02) ==
LOC: M ED 22:03
DX: M62.271 Nontraumatic ischemic infarction of muscle, right ankle and foot (principal); I70.92 Chronic total occlusion of artery of the extremities; I70.201 Unspecified atherosclerosis of native arteries of extremities, right leg; I74.3 Embolism and thrombosis of arteries of the lower extremities; I77.4 Celiac artery compression syndrome; J18.1 Lobar pneumonia, unspecified organism; F17.200 Nicotine dependence, unspecified, uncomplicated; J44.9 Chronic obstructive pulmonary disease, unspecified; Z79.51 Long term (current) use of inhaled steroids; Z79.82 Long term (current) use of aspirin; Z79.899 Other long term (current) drug therapy
CPT/HCPCS: 73706; 80047; 85027; 85610; 85730; 96361; 96372; 96374; 96376; 99284; J0696; Q9967

== ENCOUNTER → 2019-08-18 | Outpatient (CLI) | payer MEDICAID, MEDICARE, OTHER ==
[~2019-08-18] MED LIST changes: -CLAR500T PO; +CLAR500T97 PO; +FERR325T81 PO; +VITA500C24 PO
--- NOTE | 2019-08-19 04:12 | REP ---
Clinical: Symptoms related to atherosclerotic disease and intermittent claudication. Comparison: 01/10/2019 Technique: Real time scale and color Doppler evaluation of the bilateral lower extremity arterial vasculature using linear high frequency transducer. Findings: Right lower extremity demonstrates occluded femoral-popliteal bypass graft and patent stent through the mid to distal femoral artery. There is an area of stenosis (2:1) in the proximal superficial femoral artery. Vessels below the level of the knee in the mid to upper calf demonstrate slow flow and small caliber with monophasic wave patterns as well as element of reversed revascularizing flow in the proximal anterior tibial artery. Left lower extremity demonstrates mild atheromatous plaquing without significant areas of stenosis or occlusion. Vessels below the level of the knee demonstrate monophasic wave patterns with slow flow which appears progressed from prior examination. Peak systolic velocities (cm/sec) RIGHT LEFT ALEX 0.93 1.07 Common femoral artery 109 (biphasic) 65 (biphasic) Profunda femoris 97 (monophasic) 75 (monophasic) SFA (proximal) 112/233 (tri) 92 (tri) SFA (mid) 39 (tri) 107 (tri) SFA (distal) 45 (biphasic) 78 (tri). Popliteal artery 131 (tri) 54 (tri) MAKSIM (prox.) reversed 35 (tri) Tibioperoneal trunk 77 (monophasic) 54 (tri) CHIEF OPERATOR REFORMER (prox.) 73 (monophasic) 46 (monophasic) CHIEF OPERATOR REFORMER (distal) 32 (monophasic) 16 (monophasic) MAKSIM (distal) 15 (monophasic) 30 (monophasic) Impression: Changes related to underlying atherosclerotic disease as described above. Findings include stenosis in the right proximal SFA as well as other findings. Electronically Signed by Daryn Stafford MD 08/19/2019 04:03 A
== END ==
LOC: M RAD 11:40
PROVIDERS: ATTEND Physician Assistant
DX: I70.213 Atherosclerosis of native arteries of extremities with intermittent claudication, bilateral legs (principal)

== ENCOUNTER → 2021-07-09 | Outpatient (CLI) | payer MEDICARE ==
[~2021-07-09] MED LIST changes: +DRON400T PO; -DRON40TA PO; +LISI10TA22 PO; -LISI10TA4 PO; +PANT40TA29 PO; -PANT40TA3 PO
[2021-07-09 10:07] LABS: BASO # 0.1 10^3/uL (0.0-0.2); BASO % 0.9 % (0.0-1.0); EOS # 0.8 10^3/uL (0.0-0.5); EOS % 5.8 % (0.0-3.0); HEMATOCRIT 39.3 % (36.0-47.0); HEMOGLOBIN 12.5 g/dl (12.0-15.5); LYMPH # 2.5 10^3/uL (1.5-5.0); LYMPH % 18.2 % (24.0-44.0); MEAN CORPUSCULAR HEMOGLOBIN 29.9 pg (27.0-33.0); MEAN CORPUSCULAR HGB CONC 31.8 g/dl (32.0-36.5); MONO % 12.3 % (2.0-8.0); NEUTROPHILS # 8.6 10^3/uL (1.5-8.5); NEUTROPHILS % 62.4 % (36.0-66.0); PLATELET COUNT, AUTOMATED 332 10^3/uL (150-450); RED BLOOD COUNT 4.18 10^6/uL (4.00-5.40); WHITE BLOOD COUNT 13.8 10^3/uL (4.0-10.0)
[2021-07-09 10:35] LABS: MONO # 1.7 10^3/uL (0.0-0.8)
[2021-07-09 10:46] LABS: ALBUMIN 3.7 GM/DL (3.2-5.2); BILIRUBIN,TOTAL 0.4 MG/DL (0.2-1.0); CALCIUM LEVEL 9.7 MG/DL (8.8-10.2); CREATININE FOR GFR 2.06 MG/DL (0.55-1.30); FREE T4 1.17 NG/DL (0.76-1.46); GLOMERULAR FILTRATION RATE 25.5 (>45); POTASSIUM SERUM 4.7 MEQ/L (3.5-5.1); THYROID STIMULATING HORMONE 4.5 uIU/ML (0.358-3.740); TOTAL 25(OH) VITAMIN D 33.2 NG/ML (30.0-100.0); TOTAL PROTEIN 7.1 GM/DL (6.4-8.2)
== END ==
LOC: M RAD 08:36
PROVIDERS: ATTEND Physician Assistant
DX: I70.213 Atherosclerosis of native arteries of extremities with intermittent claudication, bilateral legs (principal); E03.9 Hypothyroidism, unspecified; Z79.899 Other long term (current) drug therapy; N18.9 Chronic kidney disease, unspecified

== ENCOUNTER → 2021-11-12 | Outpatient (CLI) | payer MEDICARE ==
[~2021-11-12] MED LIST changes: +ACET-1349 PO; +ACID100C PO; +AMIO200T49 PO; +ECOT81TA5 PO; +FAMO20TA PO; +LEVO25CA PO; +LOVE1INJ SC; +METO1TAB7 PO; +NITR0.4S14 SL; +RISATAB3 PO; +VITA200012 PO
== END ==
LOC: M LABSMTC 09:03
PROVIDERS: ATTEND Anesthesiology
DX: Z11.52 Encounter for screening for COVID-19 (principal)

== ENCOUNTER 2021-11-14 06:05 | Day surgery (SDC) | payer MEDICARE ==
[~2021-11-14] VITALS: Ht 170.2 cm; Wt 71.6 kg
[2021-11-14] MEDS ORDERED: LR 1,000 ML IV SCH (06:20)
[2021-11-14 06:38] VITALS: BP 139/65
[2021-11-14] MEDS ORDERED: LIDOCAINE VISCOUS 2% SOLN 15ML UDC As Ordered ONE (07:14)
[2021-11-14] MEDS ORDERED: CETACAINE SPRAY 5GM As Ordered ONE (07:14)
[2021-11-14] MEDS ORDERED: propofoL 200 MG/20 ML VIAL As Ordered ONE (07:15)
[2021-11-14] MEDS ORDERED: fentaNYL 100 MCG/2 ML INJECTION As Ordered ONE (07:15)
[2021-11-14] MEDS ORDERED: LIDOCAINE 2% 100MG/5ML SDV (FOR ANES.) As Ordered ONE (07:15)
== END 2021-11-14 07:45 | disposition home or self-care (01) ==
LOC: M SDC 06:05
PROVIDERS: ATTEND Internal Medicine Cardiovascular Disease
DX: I48.0 Paroxysmal atrial fibrillation (principal); Z53.09 Procedure and treatment not carried out because of other contraindication

== ENCOUNTER → 2022-04-03 | Outpatient (CLI) | payer MEDICARE ==
[~2022-04-03] MED LIST changes: +CLOP75TA99 PO; -PLAV1TAB2 PO
== END ==
LOC: M RAD 11:13
PROVIDERS: ATTEND Physician Assistant
DX: J44.9 Chronic obstructive pulmonary disease, unspecified (principal); D73.89 Other diseases of spleen

== ENCOUNTER 2022-11-27 09:13 | Outpatient (CLI) | payer MEDICARE, MEDICAID ==
[~2022-11-27] VITALS: Ht 170.2 cm; Wt 78.0 kg
[2022-11-27] MEDS ORDERED: IRON SUCROSE 500 MG in NS 250 ML OVER 4 HRS IV ONE (10:15)
[2022-11-27 10:27] VITALS: BP 136/78; O2SAT 98
[2022-11-27 15:00] VITALS: BP 135/68; O2SAT 93
== END 2022-11-27 14:45 | disposition home or self-care (01) ==
LOC: M INFU 09:13
PROVIDERS: ATTEND Physician Assistant
DX: D50.9 Iron deficiency anemia, unspecified (principal)
CPT/HCPCS: 96365; 96366; J1756

== ENCOUNTER → 2023-12-15 | Outpatient (REF) | payer MEDICARE, MEDICAID | LOC: M SFHCDERM 12:53 | PROVIDERS: ATTEND Physician Assistant | DX: L40.9 Psoriasis, unspecified (principal) ==

== ENCOUNTER → 2024-10-13 | Outpatient (CLI) | payer MEDICARE, MEDICAID ==
[~2024-10-13] MED LIST changes: -AMIO200T49 PO; +AMIO200T54 PO; -LEVO25CA PO; +LEVO25CA2 PO
[2024-10-13 11:42] LABS: BASO # 0.1 10^3/uL (0.0-0.2); BASO % 0.6 % (0.0-1.0); EOS # 0.3 10^3/uL (0.0-0.5); EOS % 2.5 % (0.0-3.0); HEMATOCRIT 42.6 % (36.0-47.0); HEMOGLOBIN 13.9 g/dl (12.0-15.5); LYMPH # 2.5 10^3/uL (1.5-5.0); LYMPH % 22.1 % (24.0-44.0); MEAN CORPUSCULAR HGB CONC 32.6 g/dl (32.0-36.5); MONO # 1.1 10^3/uL (0.0-0.8); MONO % 9.3 % (2.0-8.0); NEUTROPHILS # 7.4 10^3/uL (1.5-8.5); NEUTROPHILS % 65.1 % (36.0-66.0); PLATELET COUNT, AUTOMATED 317 10^3/uL (150-450); RED BLOOD COUNT 4.63 10^6/uL (4.00-5.40); WHITE BLOOD COUNT 11.3 10^3/uL (4.0-10.0)
[2024-10-13 11:59] LABS: URIC ACID 6.2 MG/DL (3.1-7.8)
[2024-10-13 12:02] LABS: ALBUMIN 3.6 G/DL (3.2-5.2); BILIRUBIN,TOTAL 0.6 MG/DL (0.3-1.2); CALCIUM LEVEL 9.6 MG/DL (8.3-10.6); CHOLESTEROL RISK RATIO 2.33 (<5); CREATININE FOR GFR 0.96 MG/DL (0.55-1.30); GLOMERULAR FILTRATION RATE 63.3 (>39); LDL CHOLESTEROL 59.8 MG/DL (<100); MAGNESIUM LEVEL 1.8 MG/DL (1.8-2.4); TOTAL PROTEIN 6.8 G/DL (5.7-8.2)
[2024-10-13 12:04] LABS: FERRITIN 34.6 NG/ML (7.3-270.7); HEMOGLOBIN A1c 5.6 % (4.0-6.0); THYROID STIMULATING HORMONE 2.194 uIU/ML (0.55-4.78); THYROXINE (T4) 13.8 UG/DL (4.5-10.9)
== END ==
LOC: M LAB 10:56
PROVIDERS: ATTEND Physician Assistant
DX: I12.9 Hypertensive chronic kidney disease with stage 1 through stage 4 chronic kidney disease, or unspecified chronic kidney disease (principal); E78.2 Mixed hyperlipidemia; E03.9 Hypothyroidism, unspecified; I70.213 Atherosclerosis of native arteries of extremities with intermittent claudication, bilateral legs; Z87.11 Personal history of peptic ulcer disease; L40.9 Psoriasis, unspecified; Z79.899 Other long term (current) drug therapy; I48.0 Paroxysmal atrial fibrillation; D64.9 Anemia, unspecified